=== PATIENT | male | born 1980 | race Caucasian/White ===

== ENCOUNTER 2018-02-02 11:43 | Inpatient (IN) | payer OTHER ==
[2018-02-02] MEDS ORDERED: NS 0.9% 1000 ML** 2,000 ML IV ONE (12:23)
[2018-02-02] MEDS ORDERED: Ketorolac INJ* 30 MG/ML 1 ML VIAL IV PUSH ONE (12:40)
[2018-02-02] MEDS ORDERED: Ondansetron INJ* 2 MG/ML VIAL IV ONE (12:41)
--- NOTE | 2018-02-02 12:41 | ED ---
Abdominal Pain/Male - HPI Summary HPI Summary: Pt is a 37 y/o incarcerated male brought in with two guards who presents to the ED c/o abdominal pain for months, worse the past few days. [facility]. Pt has had intermittent RUQ pain for the past 4 months. He has been taking Ibuprofen and antacid for his symptoms. Pt describes the pain as 10/10 in severity, sharp, and shooting. The pain is made worse with burping and coughing. He began to have this pain again yesterday in his RUQ, but it now radiates to his entire abdomen. Pt also c/o chills, diaphoresis, SOB , cough, N/V, and dizziness. He denies any urinary sx, hematochezia, GREGORIO, CP, or fever. He describes his vomit as clear, and denies any blood. Pts last BM was yesterday and was normal. The last thing he ate was yesterday, and he ate baked ziti. PMHx hernias and HTN. He denies any hx of gallbladder issues. Pt has a FHx of gallbladder issues. - History of Current Complaint Chief Complaint: EDAbdPain Stated Complaint: ABD PAIN Time Seen by Provider: 02/02/18 12:21 Hx Obtained From: Patient Onset/Duration: Gradual Onset, Still Present Timing: Intermittent, Lasting Weeks - 4 months Severity Initially: Moderate Severity Currently: Severe Pain Intensity: 10 Pain Scale Used: 0-10 Numeric Location: Discrete At: RUQ Radiates: Yes Radiates to: Other - Abdomen Character: Sharp - shooting Aggravating Factor(s): Other: - burping, coughing Alleviating Factor(s): Nothing Associated Signs And Symptoms: Positive: Cough, Dizzy, Nausea, Vomiting. Negative: Fever, Chest Pain, Urinary Symptoms - Allergies/Home Medications Allergies/Adverse Reactions: Allergies Allergy/AdvReac Type Severity Reaction Status Date / Time No Known Drug Allergies Allergy See Comment Verified 02/02/18 11:54 Home Medications: Home Medications Omeprazole CAP (NF) [Prilosec CAP* 20 MG] 20 mg PO DAILY 02/02/18 [History Confirmed 02/02/18] PMH/Surg Hx/FS Hx/Imm Hx Previously Healthy: No Endocrine/Hematology History: Denies: Hx Diabetes Cardiovascular History: Reports: Hx Hypertension GI History: Reports: Other GI Disorders - hernias Denies: Hx Gall Bladder Disease - Surgical History Surgery Procedure, Year, and Place: bilateral hernia surgery Infectious Disease History: No Infectious Disease History: Denies: Traveled Outside the [place] in Last 30 Days - Family History Known Family History: Positive: Other - Gallbladder disease - Social History Lives: [facility] - incarcerated at [facility] Alcohol Use: None Hx Substance Use: No Substance Use Type: Reports: None Hx Tobacco Use: Yes Smoking Status (MU): Former Smoker Review of Systems Positive: Chills, Skin Diaphoresis. Negative: Fever Negative: Chest Pain Positive: Shortness Of Breath, Cough Positive: Abdominal Pain, Vomiting, Nausea, Other - NEGATIVE: hematochezia, hemetemesis Genitourinary: Negative Musculoskeletal: Negative Skin: Negative Neurological: Other - Dizziness Negative: Headache Psychological: Normal All Other Systems Reviewed And Are Negative: Yes Physical Exam - Summary Physical Exam Summary: Appearance: Ill-appearing, moderate pain distress, well-nourished Skin: Warm, color reflects adequate perfusion, dry Head: Normal Head/Face inspection, atraumatic Eyes: Conjunctiva clear ENT: Normal inspection Neck: Supple, no nodes, no JVD Respiratory: Lungs clear, normal breath sounds, no respiratory distress Cardio: RRR, No murmur, pulses normal, brisk capillary refill Abdomen: Soft, RUQ tenderness, nondistended, no masses Bowel sounds: Present Musculoskeletal: Strength Intact/ROM intact, no calf tenderness, no edema. Psychological: Normal Neuro: Alert, muscle tone normal, no focal deficit Triage Information Reviewed: Yes Vital Signs On Initial Exam: Initial Vitals Temp Pulse Resp BP Pulse Ox 97.3 F 67 19 166/84 93 02/02/18 11:49 02/02/18 11:49 02/02/18 11:49 02/02/18 11:49 02/02/18 11:49 Vital Signs Reviewed: Yes Diagnostics - Vital Signs Vital Signs Temp Pulse Resp BP Pulse Ox 02/02/18 11:54 67 93 02/02/18 11:53 69 166/84 94 02/02/18 11:49 97.3 F 67 19 166/84 93 - Laboratory Result Diagrams: 02/09/18 07:27 02/09/18 07:27 Lab Statement: Any lab studies that have been ordered have been reviewed, and results considered in the medical decision making process. - Radiology CXR Radiology Interpretation Completed By: Radiologist Summary of Radiographic Findings: No evidence for acute intrathoracic disease. Negative for free air beneath the diaphragm. ED physician reviewed radiology report. - Ultrasound No standard instances Ultrasound Interpretation Completed By: Radiologist Summary of Ultrasound Findings: Gallbladder US: Hepatomegaly and hepatosteatosis. Cholelithiasis without compelling secondary findings to indicate acute cholecystitis. The common bile duct could not be visualized due to limited acoustic window. Negative for intrahepatic biliary dilatation. ED physician reviewed radiology report. - EKG 12:32 Cardiac Rate: NL - 62 bpm EKG Rhythm: Sinus Rhythm ST Segment: Non-Specific Ectopy: None EKG Comparison: Other - No prior to compare. Summary of EKG Findings: An EKG at 12:32 reveals nml AV/IV CT, nml QTc, and nml axis. Re-Evaluation - Re-Evaluation First Eval Re-Evaluation Time: 14:00 Change: Unchanged Comment: Informed pt of US results. Awaiting lipase results. Second Eval Re-Evaluation Time: 15:21 Change: Unchanged Comment: Informed pt of plan to admit. Abdominal Pain Fem Course/Dx - Course Course Of Treatment: Pt is a 37 y/o male incarcerated at [facility], brought in with two guards who presents to the ED c/o abdominal pain acutely worse in the past few days. Pt has had intermittent RUQ pain for the past 4 months. Pt describes the pain as 10/10 in severity, sharp, and shooting. The pain is made worse with burping and coughing. He began to have this pain again yesterday in his RUQ, but it now radiates to his entire abdomen. Pt also c/o chills, diaphoresis, SOB, cough, N/V, and dizziness. He denies any urinary sx, hematochezia, GREGORIO, CP, or fever. A physical exam revealed RUQ tenderness. A CXR was negative. A gallbladder US revealed Hepatomegaly and hepatosteatosis. Cholelithiasis without compelling secondary findings to indicate acute cholecystitis. The common bile duct could not be visualized due to limited acoustic window. Negative for intrahepatic biliary dilatation. An EKG was normal with a rate of 62 bpm. UA and bloodwork reviewed. Lab abnormalities include T Bili 6.7, AST 568, ALT 1290, alk phos 139, amylase 774, lipase 2701. Care was discussed with Dr. Stiles who suggests probable gallstone pancreatitis with possible common bile duct obstruction. In the course the pt was given Amlodipine, Hydrochlorothiazide, fluids, Toradol, and Zofran. Final dx are gallstones, pancreatitis, and jaundice. Dr. Stiles suggested a CT A/P to try to visualize common bile duct, and Dr. Hernandez accepts pt for admission. He is agreeable with this plan. - Diagnoses Differential Diagnosis/HQI/PQRI: Appendicitis, Gall Bladder Disease, Pancreatitis Provider Diagnoses: Gallstones, Pancreatitis, Jaundice, Hypertension, poor control - Provider Notifications Discussed Care Of Patient With: Ernie Stiles Time Discussed With Above Provider: 15:02 Instructed by Provider To: Other - Get a CT A/P and admit to the hospitalist. At 15:[address] Hernandez, who accepts pt for admission. Discharge - Sign-Out/Discharge Documenting (check all that apply): Patient Departure - Admit - Discharge Plan Condition: Improved Disposition: ADMITTED TO [facility] - Billing Disposition and Condition Condition: IMPROVED Disposition: Admitted to [facility] - Attestation Statements Document Initiated by Dixonibe: Yes Documenting Scribe: Meghana Monroy Provider For Whom Dixonibe is Documenting (Include Credential): Jerica Elizondo MD Scribe Attestation: Meghana Horton, scribed for Jerica Elizondo MD on 02/12/18 at 1329. Scribe Documentation Reviewed: Yes Provider Attestation: The documentation as recorded by the Meghana pearl accurately reflects the service I personally performed and the decisions made by , Jerica Elizondo MD Status of Scribe Document: Viewed
[2018-02-02] MEDS ORDERED: amLODIPine TAB* 5 MG PO ONE (12:42)
[2018-02-02] MEDS ORDERED: Hydrochlorothiazide TAB* 25 MG PO ONE (12:43)
[2018-02-02 13:51] LABS: Activated Partial Thrombo Time 29.2 seconds (26.0-36.3); INR 1.02 (0.77-1.02)
[2018-02-02 13:58] LABS: Albumin 4.2 g/dL (3.2-5.2); Calcium 9.3 mg/dL (8.6-10.3); Potassium 3.9 mmol/L (3.5-5.0); Total Bilirubin 6.7 mg/dL (0.2-1.0)
[2018-02-02 14:04] LABS: Albumin/Globulin Ratio 1.6 (1-3); BUN/Creatinine Ratio 12.6 (8-20); C Reactive Protein 30.9 mg/L (<8.01); EGFR African American 97.3 (>60); EGFR Non-African American 80.4 (>60); Globulin 2.7 g/dL (2-4); Total Protein 6.9 g/dL (6.4-8.9)
[2018-02-02 14:21] LABS: ABS Basophils 0 10^3/ul (0-0.2); ABS Eosinophils 0 10^3/ul (0-0.6); ABS Lymphocytes 0.6 10^3/ul (1.0-4.8); ABS Monocytes 0.5 10^3/ul (0-0.8); ABS Neutrophils 7.9 10^3/ul (1.5-7.7); ABS Nucleated RBC 0 10^3/ul; Eosinophil % 0 %; Hematocrit 47 % (42-52); Hemoglobin 16.2 g/dl (14.0-18.0); Lymphocyte % 6.3 %; Mean Corpuscular HGB Conc 35 g/dl (31-36); Mean Corpuscular Hemoglobin 31 pg (27-31); Mean Corpuscular Volume 90 fL (80-94); Mean Platelet Volume 9.4 fL (7.4-10.4); Nucleated Red Blood Cells % 0; Platelet Count 203 10^3/ul (150-450); Red Blood Count 5.24 10^6/ul (4.00-5.40); Red Cell Distribution Width 13 % (10.5-15); White Blood Count 8.9 10^3/ul (3.5-10.8)
[2018-02-02 14:28] LABS: Urine Appearance Cloudy; Urine Bacteria Absent (Absent); Urine Bilirubin 1+ (Negative); Urine Blood Negative (Negative); Urine Color Amber; Urine Glucose Negative (Negative); Urine Ketones 1+ (Negative); Urine Nitrite Negative (Negative); Urine Protein 1+(30 mg/dL) (Negative); Urine Red Blood Cell Trace(0-2/hpf) (Absent); Urine Specific Gravity 1.031 (1.010-1.030); Urine Squamous Epithelial Cell Present (Absent); Urine Urobilinogen Positive (Negative); Urine White Blood Cell 2+(11-20/hpf) (Absent)
[2018-02-02 14:38] LABS: BNP 13 pg/mL (<=100)
[2018-02-02] MEDS ORDERED: hydrALAZINE IV* 20 MG/ML VIAL IV SLOW PU PRN (15:57)
[2018-02-02] MEDS ORDERED: Iohexol 300* (CONTRAST) 10 ML SDV IV ONE (16:00)
[2018-02-02] MEDS: Morphine VIAL* 4 MG/ML VIAL (1 ml vial) IV PRN ×2 (16:35→20:47)
[2018-02-02] MEDS: NS 0.9% 1000 ML** 1,000 ML IV SCH (17:05)
--- NOTE | 2018-02-02 18:49 | HP ---
CC: Primary Care Provider* HISTORY AND PHYSICAL: DATE OF ADMISSION: 02/02/18 PRIMARY CARE PROVIDER: Provider at [facility]. CHIEF COMPLAINT: Right upper quadrant abdominal pain. HISTORY OF PRESENT ILLNESS: Mr. Lowery is a 37-year-old male, who presented to the emergency room with complaints of 4 months of off-and-on right upper quadrant abdominal pain. He states that it has been low level discomfort for the last several months. He states that he will develop more severe pain after eating a bowl of oatmeal and peanut butter at times. Approximately 2 days prior to this admission, he ate for dinner. Yesterday (02/01/18) a.m., he awakened with severe right upper quadrant abdominal pain. He states that it then radiated to the entire abdomen. He states that he was unable to sleep. He states that he feels short of breath, but when asked to describe it, he states it hurt to take a deep breath. The patient has also been vomiting. He admits to shaking chills. He admits to feeling dizzy. He noted that his urine was very dark today. He denies any eric colored stools. He has had no appetite over the last few days. PAST MEDICAL HISTORY: Hypertension. PAST SURGICAL HISTORY: Bilateral inguinal hernia repair. MEDICATIONS: 1. Omeprazole 20 mg p.o. daily. 2. Hydrochlorothiazide 25 mg p.o. daily. 3. Amlodipine 10 mg p.o. daily. ALLERGIES: No known drug allergies. FAMILY HISTORY: Mom is living, she is 59. He reports some neurologic issue, but he is not sure what it is. Dad is also living, he is 64. He has a history of diabetes. SOCIAL HISTORY: The patient admits to smoking 3 cigarettes per day. He does not drink any alcohol currently. No recreational drugs currently. 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 He is . He has 3 children. He is currently incarcerated at [facility]. REVIEW OF SYSTEMS: A complete 11-system review of systems was obtained. Pertinent positives and negatives are as per HPI and otherwise negative. PHYSICAL EXAMINATION GENERAL: The patient is a well-developed, young male, sitting up in the stretcher, in no acute distress. VITAL SIGNS: Blood pressure 138/75, pulse 60, respirations 19, temp 97.3, O2 sat 95% on room air. HEENT: Pupils are equal and round. Extraocular muscles are intact. Oropharynx is clear. Oral mucosa is moist. There is no submandibular, cervical , or supraclavicular adenopathy. Thyroid is not enlarged. No thyroid nodules noted. PULMONARY: Lungs are clear to auscultation bilaterally. CARDIAC: Normal S1, S2. Regular rate and rhythm. I do not appreciate any murmur. There is no lower extremity edema. ABDOMEN: Bowel sounds are present. Abdomen is soft. It is nondistended. He is diffusely tender, but more so in the epigastrium and right upper quadrant and this is to light palpation. MUSCULOSKELETAL: There is no cyanosis or clubbing of the digits. The patient' s lower extremities are in shackles. NEUROLOGIC: Cranial nerves II through XII are grossly intact. Sensation is intact to light touch throughout. Strength is 5/5 and symmetric both upper and lower extremities bilaterally. PSYCHIATRIC: The patient is alert. He is oriented x3. Affect appears appropriate. SKIN: Warm and dry. There are no rashes. DIAGNOSTIC STUDIES/LAB DATA: Laboratory: WBC 8.9, hemoglobin 16.2, hematocrit 47, platelets 203. INR 1.02. Sodium 136, potassium 3.9, chloride 102, CO2 22, BUN 13, creatinine 1.03, glucose 134, lactic acid 1.7, calcium 9.3 , magnesium 2.0, bilirubin 6.7, AST 568, ALT 1290, alk phos 139, ammonia 71, CPK 108, troponin 0, CRP 30.9, BNP 13, albumin 4.2, amylase 774, lipase 2701. Urinalysis reveals cloudy urine with specific gravity of 1.031, 1+ protein, 1+ ketones, 1+ bilirubin, positive urobilinogen, 2+ wbc, positive for squamous epithelial cells and hyaline casts. EKG reveals normal sinus rhythm without any acute ST-T wave abnormalities. Chest x- ray: No evidence for acute intrathoracic disease, negative for free air beneath the diaphragm. Gallbladder ultrasound reveals hepatomegaly and hepatosteatosis. Cholelithiasis felt compelling secondary findings to indicate acute cholecystitis. The common bile duct could not be visualized due to limited acoustic window. Negative for intrahepatic biliary dilation. ASSESSMENT AND PLAN: Mr. Lowery is a 37-year-old male, who has had 4 months of off- and-on right upper quadrant abdominal pain that progressed to being quite severe on the day prior to admission with associated chills and dizziness, who presents to the emergency room for evaluation of this. 1. Probable gallstone pancreatitis. The patient at this point has markedly elevated bilirubin of 6.7 and elevated LFTs. My suspicion is that the patient is either in the process of or has passed a gallstone. The patient did admit to chills. Because of this, I will go ahead and treat with Zosyn for possible cholangitis, so this is unlikely given the patient is afebrile and does not have a leukocytosis. Dr. Stiles has been contacted through the emergency room and will be seeing the patient in consultation. At this point per report, he is going to hold off on endoscopic retrograde cholangiopancreatography. Followup CBC, CMP, and lipase levels will be obtained tomorrow. The patient will likely need cholecystectomy this hospitalization due to this probably representing gallstone pancreatitis. The patient will be receiving normal saline at 125 mL per hour and will be n.p.o. except for ice chips. Morphine 4 mg IV q.4 hours has been ordered for pain control. 2. Hypertension. At this point, I am going to hold the patient's antihypertensives. P.r.n. hydralazine will be available for systolic blood pressures greater than 170. 3. DVT prophylaxis: According to the Adult Thrombosis Prophylaxis Risk Factor Assessment Guide, the patient has a total risk factor score of 1, making him low risk. Ambulation will be utilized as DVT prophylaxis. 4. Code status is full. TIME SPENT: 55 minutes was spent admitting this patient. [id number]/[facility] #: [id number] [facility]ITAL[facility]cob
[2018-02-02] MEDS ORDERED: Piperacillin/Tazobac ADVAN(*) 3.375 GM in NS 0.9% 100 ML* 100 ML IVPB ONE (21:09)
--- NOTE | 2018-02-02 21:17 | CONS ---
GASTROENTEROLOGY CONSULT: DATE: 02/02/18 CONSULTING PHYSICIAN: Rosmery Hernandez REASON FOR CONSULTATION: Abdominal pain with elevated lipase and ultrasound showing gallstones. HISTORY: This 37-year-old inmate at [facility] states that over the last year he has lost about 20 pounds voluntarily. He has not really been trying to lose weight. About a month ago, he began having episodes of right upper quadrant distress, which he said would tend to occur in the night, sometimes awakening him at 1 or 2 a.m. if he had been eating late. Several days ago, he went in to the [facility] and was told to take ibuprofen and antacids. The pain, however, built and then today it was, he said, unbearable. He had been up through the night. He had vomited a couple of times in the night and also a couple of times this morning. His last bowel movement was about 20 hours ago. He has not seen any black stools. There has not been on any fever. His mother apparently works in a primary care office and describing his symptoms told him to get an ultrasound. PAST MEDICAL HISTORY: 1. Hernia repairs right and left, ages 6 and 8. 2. Cholelithiasis - seen on the ultrasound today 3. Hypertension meds started in the [facility] SOCIAL HISTORY: He actually has a primary care doctor in whose office his mother works. He states he is not treated for any medical condition there, but just likes "to get checked out." REVIEW OF SYSTEMS: He denies any cardiac, pulmonary or renal disease. There is no history of seizures, syncope, palpitations, AR, hemoptysis, or TB. PHYSICAL EXAM: He is a composed, generally healthy appearing, moderately overweight young man, in no overt distress at this time, and is stating his abdomen is uncomfortable. HEENT exam shows no obvious icterus. He has a few tattoos and skin otherwise normal. He has no adenopathy. His lungs are clear and heart sounds are normal. His abdomen is symmetric without any visible abnormality. Bowel sounds are present. Extremities show no edema or deformity. LABS: Lipase 2701, alkaline phosphatase 139, bilirubin 6.7, ALT 1290. CBC shows hemoglobin 16.2, white count 8.9, platelets 203. Right upper quadrant ultrasound - hepatomegaly and gallstones. The common duct was not seen. IMPRESSION: This 37-year-old man mildly overweight who has lost a little bit of weight during a year in [facility] now has pain in the right upper quadrant intermittently, but increasingly over the last month. The lab abnormalities clearly point towards common duct obstruction and gallstone pancreatitis. He will have a CT scan and then quite possibly MRCP. [id number]/[facility] #: [id number] MTDJaycob
[2018-02-02] MEDS ORDERED: Zosyn per Pharmacy* NOTE FOLLOW UP SCH (22:00)
[2018-02-02] MEDS: ZOSYN 3.375 GM Q8H per EXTENDED INFUSION IVPB SCH ×2 (23:34)
[2018-02-03] MEDS: Morphine VIAL* 4 MG/ML VIAL (1 ml vial) IV PRN ×4 (01:34→18:31)
[2018-02-03] MEDS: ZOSYN 3.375 GM Q8H per EXTENDED INFUSION IVPB SCH ×6 (01:35→18:09)
[2018-02-03] MEDS: NS 0.9% 1000 ML** 1,000 ML IV SCH ×2 (01:40→18:09)
[2018-02-03 06:24] LABS: ABS Basophils 0 10^3/ul (0-0.2); ABS Eosinophils 0 10^3/ul (0-0.6); ABS Lymphocytes 1.2 10^3/ul (1.0-4.8); ABS Monocytes 0.7 10^3/ul (0-0.8); ABS Neutrophils 7.8 10^3/ul (1.5-7.7); ABS Nucleated RBC 0 10^3/ul; Eosinophil % 0 %; Hematocrit 43 % (42-52); Hemoglobin 14.9 g/dl (14.0-18.0); Lymphocyte % 12.2 %; Mean Corpuscular HGB Conc 35 g/dl (31-36); Mean Corpuscular Hemoglobin 31 pg (27-31); Mean Corpuscular Volume 89 fL (80-94); Mean Platelet Volume 8.8 fL (7.4-10.4); Nucleated Red Blood Cells % 0; Platelet Count 151 10^3/ul (150-450); Red Blood Count 4.82 10^6/ul (4.00-5.40); Red Cell Distribution Width 13 % (10.5-15); White Blood Count 9.7 10^3/ul (3.5-10.8)
[2018-02-03 06:41] LABS: Albumin 3.7 g/dL (3.2-5.2); Albumin/Globulin Ratio 1.5 (1-3); BUN/Creatinine Ratio 10.9 (8-20); Calcium 8.8 mg/dL (8.6-10.3); EGFR African American 99.5 (>60); EGFR Non-African American 82.2 (>60); Globulin 2.4 g/dL (2-4); Potassium 3.9 mmol/L (3.5-5.0); Total Protein 6.1 g/dL (6.4-8.9)
[2018-02-03] MEDS: Pantoprazole IV* 40 MG IV SCH (09:18)
--- NOTE | 2018-02-03 17:40 | PN ---
Subjective Date of Service: 02/03/18 Interval History: Pt reports minimal improvement in pain.Has been NPO so far and wants to eat.Denies Nausea,vomiting Objective Active Medications: Hydralazine HCl (Apresoline Iv*) 5 mg IV SLOW PU Q6H PRN PRN Reason: SBP>170 Sodium Chloride (Ns 0.9% 1000 Ml*) 1,000 mls @ 125 mls/hr IV PER RATE [facility] Last Admin: 02/03/18 01:40 Dose: 125 mls/hr Piperacillin Sod/Tazobactam (Sod 3.375 gm/ Sodium Chloride) 100 mls @ 25 mls/ hr IVPB 0230,1030,1830 [facility] Last Admin: 02/03/18 09:19 Dose: 25 mls/hr Morphine Sulfate (Morphine Vial*) 4 mg IV Q4H PRN PRN Reason: PAIN Last Admin: 02/03/18 09:35 Dose: 4 mg Pantoprazole Sodium (Protonix Iv*) 40 mg IV DAILY [facility] Last Admin: 02/03/18 09:18 Dose: 40 mg Pharmacy Consult (Zosyn Per Pharmacy*) 1 note FOLLOW UP .ZOSYN PER PHARMACY [facility] Vital Signs - 8 hr 02/03/18 02/03/18 09:35 11:07 Temperature 99.1 F Pulse Rate 100 Respiratory 20 20 Rate Blood Pressure 131/75 (mmHg) O2 Sat by Pulse 94 Oximetry Oxygen Devices in Use Now: None Eyes: No Scleral Icterus Ears/Nose/Mouth/Throat: NL Teeth, Lips, Gums Neck: NL Appearance and Movements; NL JVP Respiratory: Symmetrical Chest Expansion and Respiratory Effort, Clear to Auscultation Cardiovascular: NL Sounds; No Murmurs; No JVD Abdominal: - - BS present, some tenderness to palpation diffusely in upper quadrant,no rebound,no guarding Extremities: No Edema Skin: No Rash or Ulcers Neurological: Alert and Oriented x 3 Result Diagrams: 02/03/18 06:14 02/03/18 06:14 Microbiology and Other Data: Microbiology 02/02/18 13:48 Urine Culture - Final Urine No Growth (<1,000 CFU/mL) 02/02/18 17:16 Nasal Screen MRSA (PCR) - Final Nasal Mrsa Not Detected Assess/Plan/Problems-Billing Assessment: - Patient Problems (1) Acute gallstone pancreatitis Current Visit: Yes Status: Acute Code(s): K85.10 - BILIARY ACUTE PANCREATITIS WITHOUT NECROSIS OR INFECTION SNOMED Code(s): 271393160 Comment: Possible Gallstone pancreatitis with consistent lab pattern and imaging Possible CBD obstruction from likely stone/ less likely mass CT with evidence of Pancreatitis,GB ultrasound with choledocholithiasis without acute cholecystitis. CBD not well visualized on u/s and size not estimated Elevated Lipase,AP,AST,ALT -Appreciate Dr Stiles's input -MRCP per Dr Stiles( Will need to call Radiology first thing Sunday am).ERCP following if warranted -Tian,liver panel improving.May pass stone as well. -Has been NPO.Per d/w Dr Stiles will place on Clear Liq diet today -NPO from midnight -Continue empiric antibiotic Zosyn for cholangitis coverage for now (2) Choledocholithiasis Current Visit: Yes Status: Acute Code(s): K80.50 - CALCULUS OF BILE DUCT W/ O CHOLANGITIS OR CHOLECYST W/O OBST SNOMED Code(s): 708574668 Comment: See above May need Cholecystectomy at some point See plan for MRCP/Poss ERCP above for gall stone pancreatitis (3) Hypertension Current Visit: Yes Status: Acute Code(s): I10 - ESSENTIAL (PRIMARY) HYPERTENSION SNOMED Code(s): 14269053 Comment: On amlodipine,HCTZ at home Well controlled here Will restart BP meds when stable and as BP rises
[2018-02-04] MEDS: Morphine VIAL* 4 MG/ML VIAL (1 ml vial) IV PRN ×6 (02:28→23:09)
[2018-02-04] MEDS: NS 0.9% 1000 ML** 1,000 ML IV SCH ×3 (02:28→22:26)
[2018-02-04] MEDS: ZOSYN 3.375 GM Q8H per EXTENDED INFUSION IVPB SCH ×6 (02:28→18:25)
[2018-02-04 07:56] LABS: ABS Basophils 0 10^3/ul (0-0.2); ABS Eosinophils 0 10^3/ul (0-0.6); ABS Lymphocytes 1.7 10^3/ul (1.0-4.8); ABS Monocytes 0.9 10^3/ul (0-0.8); ABS Neutrophils 11.5 10^3/ul (1.5-7.7); ABS Nucleated RBC 0 10^3/ul; Eosinophil % 0.1 %; Hematocrit 44 % (42-52); Hemoglobin 15.2 g/dl (14.0-18.0); Mean Corpuscular HGB Conc 34 g/dl (31-36); Mean Corpuscular Hemoglobin 31 pg (27-31); Mean Corpuscular Volume 90 fL (80-94); Mean Platelet Volume 9.4 fL (7.4-10.4); Nucleated Red Blood Cells % 0; Platelet Count 154 10^3/ul (150-450); Red Blood Count 4.95 10^6/ul (4.00-5.40); Red Cell Distribution Width 13 % (10.5-15); White Blood Count 14.2 10^3/ul (3.5-10.8)
[2018-02-04 08:14] LABS: Albumin 3.7 g/dL (3.2-5.2); Albumin/Globulin Ratio 1.3 (1-3); BUN/Creatinine Ratio 10.8 (8-20); Calcium 8.6 mg/dL (8.6-10.3); EGFR African American 109.4 (>60); EGFR Non-African American 90.5 (>60); Globulin 2.9 g/dL (2-4); Potassium 3.8 mmol/L (3.5-5.0); Total Bilirubin 2.6 mg/dL (0.2-1.0); Total Protein 6.6 g/dL (6.4-8.9)
[2018-02-04] MEDS: Pantoprazole IV* 40 MG IV SCH (09:40)
--- NOTE | 2018-02-04 10:36 | PN ---
Subjective Date of Service: 02/04/18 Interval History: Febrile to 101 this morning. Feels about the same; pain not better or worse. Was NPO for the MRCP when I saw him this morning but had an appetite. Was having clear liquids the night prior and tolerated well. Objective Active Medications: Hydralazine HCl (Apresoline Iv*) 5 mg IV SLOW PU Q6H PRN PRN Reason: SBP>170 Sodium Chloride (Ns 0.9% 1000 Ml*) 1,000 mls @ 125 mls/hr IV PER RATE [facility] Last Admin: 02/04/18 02:28 Dose: 125 mls/hr Piperacillin Sod/Tazobactam (Sod 3.375 gm/ Sodium Chloride) 100 mls @ 25 mls/ hr IVPB 0230,1030,1830 [facility] Last Admin: 02/04/18 09:46 Dose: 25 mls/hr Morphine Sulfate (Morphine Vial*) 4 mg IV Q4H PRN PRN Reason: PAIN Last Admin: 02/04/18 06:35 Dose: 4 mg Pantoprazole Sodium (Protonix Iv*) 40 mg IV DAILY [facility] Last Admin: 02/04/18 09:40 Dose: 40 mg Pharmacy Consult (Zosyn Per Pharmacy*) 1 note FOLLOW UP .ZOSYN PER PHARMACY [facility] Vital Signs - 8 hr 02/04/18 02/04/18 02/04/18 02:37 03:35 06:35 Temperature 99.6 F Pulse Rate 98 Respiratory 16 16 18 Rate Blood Pressure 126/70 (mmHg) O2 Sat by Pulse 93 Oximetry 02/04/18 07:13 Temperature 101.0 F Pulse Rate 94 Respiratory 16 Rate Blood Pressure 116/64 (mmHg) O2 Sat by Pulse 92 Oximetry Oxygen Devices in Use Now: None Appearance: alert, nontoxic, breathing comfortably Eyes: No Scleral Icterus Ears/Nose/Mouth/Throat: NL Teeth, Lips, Gums Neck: NL Appearance and Movements; NL JVP Respiratory: Symmetrical Chest Expansion and Respiratory Effort Cardiovascular: NL Sounds; No Murmurs; No JVD Abdominal: - - tender to palpation through epigastric area Lymphatic: No Cervical Adenopathy Extremities: No Edema Skin: No Rash or Ulcers Neurological: Alert and Oriented x 3 Result Diagrams: 02/04/18 07:46 02/04/18 07:46 Microbiology and Other Data: Microbiology 02/02/18 13:48 Urine Culture - Final Urine No Growth (<1,000 CFU/mL) 02/02/18 17:16 Nasal Screen MRSA (PCR) - Final Nasal Mrsa Not Detected Assess/Plan/Problems-Billing Assessment: 37 year old man with no medical history admitted with abdominal pain and found to have gallstone pancreatitis - Patient Problems (1) Acute gallstone pancreatitis Current Visit: Yes Status: Acute Code(s): K85.10 - BILIARY ACUTE PANCREATITIS WITHOUT NECROSIS OR INFECTION SNOMED Code(s): 127705323 Comment: MRCP shows no CBD stone CT with evidence of Pancreatitis,GB ultrasound with choledocholithiasis without acute cholecystitis. CBD not well visualized on u/s and size not estimated will eventually need cholecystecomy; discussed wtih Dr Heredia on empiric zosyn (2) Hypertension Current Visit: Yes Status: Acute Code(s): I10 - ESSENTIAL (PRIMARY) HYPERTENSION SNOMED Code(s): 06986875 Comment: On amlodipine,HCTZ at home Well controlled here Will restart BP meds when stable and as BP rises (3) SIRS (systemic inflammatory response syndrome) Current Visit: Yes Status: Acute Code(s): R65.10 - SIRS OF NON-INFECTIOUS ORIGIN W/O ACUTE ORGAN DYSFUNCTION SNOMED Code(s): 138736584 Comment: concerning for necrotizing pancreatitis no other localizing symptoms and no cholangitis on mrcp continue pip/tazo
[2018-02-04] MEDS ORDERED: Acetaminophen SUPP* 650 MG SUPP PR PRN (11:45)
--- NOTE | 2018-02-04 22:12 | CONS ---
CONSULTATION REPORT: DATE OF CONSULT: 02/04/18 REFERRING PROVIDERS: 1. Dr. Halima Nichols, hospitalist. 2. Dr. Ernie Stiles, Gastroenterology. REASON FOR CONSULTATION: Gallstone pancreatitis. HISTORY OF PRESENT ILLNESS: Mr. Silver Lowery is a 37-year-old gentleman who was admitted to the hospitalist service over the weekend after he developed severe epigastric and upper abdominal discomfort. He gives a history of some intermittent right upper quadrant abdominal pain after eating larger meals especially late at night. He has never had this evaluated but he has described his symptoms as biliary tract related. On the night of his presentation, he developed a severe abdominal pain which was much worse and more diffuse. It did not radiate through to his back. It was difficult to take a deep breath. He also noted that his urine was very dark and he felt that he may have been jaundiced. He had some shaking chills and felt dizzy as well. When seen in the emergency room, he was noted to be afebrile with stable vital signs. Laboratory workup on admission included a normal white blood cell count. However, his total bilirubin was 6.7 with an elevated AST, ALT and alkaline phosphatase and a lipase of 2700. He underwent an ultrasound of his gallbladder which showed cholelithiasis and sludge with no gallbladder thickening or pericholecystic fluid. Common bile duct was not visualized. He also underwent a CT scan of the abdomen and pelvis, which showed peripancreatic fat stranding but no loculated fluid or abscess. The findings were consistent with acute pancreatitis. He has been admitted and treated supportively. Dr. tSiles had seen him from Gastroenterology. His liver transaminases and bilirubin have been improving; however, he did undergo MRCP today. It showed no evidence of ductal dilation with multiple gallstones in the neck of the gallbladder. There was no evidence of a common bile duct stone noted. PAST MEDICAL HISTORY: Hypertension. PAST SURGICAL HISTORY: Bilateral inguinal hernia repair. MEDICATIONS: 1. Omeprazole. 2. Hydrochlorothiazide. 3. Amlodipine. ALLERGIES: He has no known drug allergies. SOCIAL HISTORY: He is incarcerated at [place]. He lives in [place]. He is . He smokes about 3 cigarettes per day. He does not drink alcohol or use recreational drugs. REVIEW OF SYSTEMS: As per above. PHYSICAL EXAM: Temperature 100.2 earlier today, pulse 97, blood pressure 118/ 83. In general, he is a well-developed, well-nourished male, appears to be in no apparent distress. He is alert, conversant and oriented x3. Lungs were clear to auscultation with normal respiratory effort. Heart was regular rate and rhythm without murmurs, rubs or gallops. His abdomen is soft and nondistended. He has diminished bowel sounds throughout. There are no prior surgical incisions or hernias. He has some tenderness in the epigastrium and left and right upper quadrants. There is no rebound, guarding or peritoneal irritation, however. Psychiatric: He is awake, alert and oriented x3. He has normal judgment and insight. IMPRESSION: Gallstone pancreatis with initial hyperbilirubinemia which is slowly trending down. Total bilirubin today was 2.6 and his AST and ALT and alkaline phosphatase are also trending to normal. His lipase this morning was 122. MRCP today shows no evidence of common bile duct stone. I discussed the findings of his workup and clinical diagnosis of gallstone pancreatitis with him. I do recommend that he undergo a laparoscopic cholecystectomy most optimally during this admission as he slowly continues to improve. Concern obviously was the temperature of last night and this afternoon with an elevated white blood cell count today. He does not appear to have acute calculous cholecystitis and the fever and white blood cell count may be elevated secondary to pancreatic inflammation and this needs to be followed closely. He was started on clear liquids and clinically follow and see how he does from the diet standpoint. For now, we will follow him as he clinically improves. Recommendation would be a laparoscopic cholecystectomy on this admission as long as there are no complications from his acute pancreatitis. [id number]/[facility] #: [id number] VANESSA
[2018-02-05] MEDS: ZOSYN 3.375 GM Q8H per EXTENDED INFUSION IVPB SCH ×6 (03:04→17:22)
[2018-02-05] MEDS: Morphine VIAL* 4 MG/ML VIAL (1 ml vial) IV PRN ×5 (03:08→20:32)
[2018-02-05 06:50] LABS: ABS Basophils 0 10^3/ul (0-0.2); ABS Eosinophils 0 10^3/ul (0-0.6); ABS Lymphocytes 1.8 10^3/ul (1.0-4.8); ABS Neutrophils 7.6 10^3/ul (1.5-7.7); ABS Nucleated RBC 0 10^3/ul; Eosinophil % 0.4 %; Hematocrit 39 % (42-52); Hemoglobin 13.6 g/dl (14.0-18.0); Lymphocyte % 17.4 %; Mean Corpuscular HGB Conc 34 g/dl (31-36); Mean Corpuscular Hemoglobin 31 pg (27-31); Mean Corpuscular Volume 89 fL (80-94); Mean Platelet Volume 9.4 fL (7.4-10.4); Nucleated Red Blood Cells % 0; Platelet Count 147 10^3/ul (150-450); Red Blood Count 4.42 10^6/ul (4.00-5.40); Red Cell Distribution Width 13 % (10.5-15); White Blood Count 10.5 10^3/ul (3.5-10.8)
[2018-02-05 07:03] LABS: INR 1.1 (0.77-1.02)
[2018-02-05 07:09] LABS: Albumin 3.3 g/dL (3.2-5.2); Albumin/Globulin Ratio 1.2 (1-3); Globulin 2.8 g/dL (2-4); Indirect Bilirubin 1.2 mg/dL (0.3-1.0); Magnesium 2.1 mg/dL (1.9-2.7); Phosphorus 1.6 mg/dL (2.5-5.0); Total Bilirubin 1.7 mg/dL (0.2-1.0); Total Protein 6.1 g/dL (6.4-8.9)
[2018-02-05] MEDS: Pantoprazole IV* 40 MG IV SCH (09:46)
--- NOTE | 2018-02-05 11:04 | PN ---
Progress Note - Progress Note Date of Service: 02/05/18 SOAP: Subjective: He has diffuse abdominal pain that is better. He is thirsty. Notes nausea/no vomiting. Objective: Vital Signs Temp 97.6 F 02/05/18 08:06 Pulse 86 02/05/18 08:06 Resp 18 02/05/18 08:16 BP 140/74 02/05/18 08:06 Pulse Ox 96 02/05/18 08:06 Gen: NAD Abd: obese; soft; tender diffusely. Intake & Output 02/04/18 02/05/18 02/05/18 18:59 06:59 18:59 Intake Total 975 1675 710 Balance 975 1675 710 Intake: IV Fluids 495 1465 ABX - ZOSYN 100 NS (0.9%) 395 1465 IVPB 210 ABX - ZOSYN 210 Oral 480 0 710 Other: Estimated Void Medium # Voids 2 0 Laboratory Results - last 24 hr 02/05/18 02/05/18 02/05/18 06:29 06:29 06:29 WBC 10.5 RBC 4.42 Hgb 13.6 L Hct 39 L MCV 89 MCH 31 MCHC 34 RDW 13 Plt Count 147 L MPV 9.4 Neut % (Auto) 72.6 Lymph % (Auto) 17.4 [place] % (Auto) 9.5 Eos % (Auto) 0.4 Baso % (Auto) 0.1 Absolute Neuts (auto) 7.6 Absolute Lymphs (auto) 1.8 Absolute Monos (auto) 1.0 H Absolute Eos (auto) 0 Absolute Basos (auto) 0 Absolute Nucleated RBC 0 Nucleated RBC % 0 INR (Anticoag Therapy) 1.10 H Phosphorus 1.6 L Magnesium 2.1 Total Bilirubin 1.70 H Direct Bilirubin 0.50 H Indirect Bilirubin 1.2 H AST 29 ALT 247 H Alkaline Phosphatase 84 Total Protein 6.1 L Albumin 3.3 Globulin 2.8 Albumin/Globulin Ratio 1.2 Assessment: Gallstone pancreatitis, improving. Plan: Continue bowel rest. Follow labs. Lap sarah later this week (will check OR availability).
--- NOTE | 2018-02-05 11:58 | PN ---
Subjective Date of Service: 02/05/18 Interval History: Feeling okay, his is here visiting. Pain is controlled with morphine. Tolerating clear liquids and actually is hungry for more food. Was afebrile overnight. Objective Active Medications: Acetaminophen (Tylenol Supp*) 650 mg TN Q4H PRN PRN Reason: FEVER Last Admin: 02/04/18 20:16 Dose: 650 mg Acetaminophen (Tylenol Tab*) 650 mg PO Q4H PRN PRN Reason: FEVER Hydralazine HCl (Apresoline Iv*) 5 mg IV SLOW PU Q6H PRN PRN Reason: SBP>170 Sodium Chloride (Ns 0.9% 1000 Ml*) 1,000 mls @ 125 mls/hr IV PER RATE [facility] Last Admin: 02/04/18 22:26 Dose: 125 mls/hr Piperacillin Sod/Tazobactam (Sod 3.375 gm/ Sodium Chloride) 100 mls @ 25 mls/ hr IVPB 0230,1030,1830 [facility] Last Admin: 02/05/18 11:33 Dose: 25 mls/hr Morphine Sulfate (Morphine Vial*) 4 mg IV Q4H PRN PRN Reason: PAIN Last Admin: 02/05/18 11:27 Dose: 4 mg Pantoprazole Sodium (Protonix Iv*) 40 mg IV DAILY [facility] Last Admin: 02/05/18 09:46 Dose: 40 mg Pharmacy Consult (Zosyn Per Pharmacy*) 1 note FOLLOW UP .ZOSYN PER PHARMACY [facility] Vital Signs - 8 hr 02/05/18 02/05/18 02/05/18 04:44 07:16 08:06 Temperature 97.6 F Pulse Rate 86 Respiratory 16 16 16 Rate Blood Pressure 140/74 (mmHg) O2 Sat by Pulse 96 Oximetry 02/05/18 02/05/18 08:16 11:27 Temperature Pulse Rate Respiratory 18 18 Rate Blood Pressure (mmHg) O2 Sat by Pulse Oximetry Oxygen Devices in Use Now: None Appearance: alert, nontoxic, well appearing and breathing comfortably Eyes: No Scleral Icterus Ears/Nose/Mouth/Throat: NL Teeth, Lips, Gums Neck: NL Appearance and Movements; NL JVP Respiratory: Symmetrical Chest Expansion and Respiratory Effort, Clear to Auscultation Cardiovascular: NL Sounds; No Murmurs; No JVD, RRR Abdominal: - - negative saunders's, mild RUQ tenderness, more epigastric tenderness Lymphatic: No Cervical Adenopathy Extremities: No Edema Skin: No Rash or Ulcers Result Diagrams: 02/05/18 06:29 02/04/18 07:46 Microbiology and Other Data: Microbiology 02/02/18 13:48 Urine Culture - Final Urine No Growth (<1,000 CFU/mL) 02/02/18 17:16 Nasal Screen MRSA (PCR) - Final Nasal Mrsa Not Detected Assess/Plan/Problems-Billing Assessment: 37 year old man with htn admitted with abdominal pain and found to have gallstone pancreatitis - Patient Problems (1) Acute gallstone pancreatitis Current Visit: Yes Status: Acute Code(s): K85.10 - BILIARY ACUTE PANCREATITIS WITHOUT NECROSIS OR INFECTION SNOMED Code(s): 703563245 Comment: MRCP showed no CBD stone On empiric zosyn though no cholecystitis, no cholangitis ; however, he was febrile with leukocytosis (this is not surprising in pancreatitis but will continue for concern of necrosis) Pain control with morphine Continue clears Plan for cholecystectomy prior to discharge (2) Hypertension Current Visit: Yes Status: Acute Code(s): I10 - ESSENTIAL (PRIMARY) HYPERTENSION SNOMED Code(s): 54211192 Comment: On amlodipine,HCTZ at home; on hold for now (3) SIRS (systemic inflammatory response syndrome) Current Visit: Yes Status: Acute Code(s): R65.10 - SIRS OF NON-INFECTIOUS ORIGIN W/O ACUTE ORGAN DYSFUNCTION SNOMED Code(s): 287023730 Comment: concerning for necrotizing pancreatitis no other localizing symptoms and no cholangitis on mrcp continue pip/tazo
[2018-02-05] MEDS: Acetaminophen TAB* 325 MG PO PRN (12:05)
[2018-02-05] MEDS: NS 0.9% 1000 ML** 1,000 ML IV SCH (17:21)
[2018-02-05] MEDS ORDERED: Polyethylene Glycol 3350* 17 GM PACKET PO PRN (17:35)
[2018-02-05] MEDS ORDERED: Polyethylene Glycol 3350* 17 GM PACKET ONE (17:42)
[2018-02-06] MEDS: Morphine VIAL* 4 MG/ML VIAL (1 ml vial) IV PRN ×6 (00:42→22:31)
[2018-02-06] MEDS: ZOSYN 3.375 GM Q8H per EXTENDED INFUSION IVPB SCH ×6 (01:42→17:23)
[2018-02-06] MEDS: NS 0.9% 1000 ML** 1,000 ML IV SCH ×2 (01:43→17:32)
[2018-02-06 06:36] LABS: ABS Basophils 0 10^3/ul (0-0.2); ABS Eosinophils 0.1 10^3/ul (0-0.6); ABS Lymphocytes 1.9 10^3/ul (1.0-4.8); ABS Monocytes 1.1 10^3/ul (0-0.8); ABS Neutrophils 7.4 10^3/ul (1.5-7.7); ABS Nucleated RBC 0 10^3/ul; Eosinophil % 1.4 %; Hematocrit 39 % (42-52); Hemoglobin 13.4 g/dl (14.0-18.0); Lymphocyte % 17.7 %; Mean Corpuscular HGB Conc 34 g/dl (31-36); Mean Corpuscular Hemoglobin 31 pg (27-31); Mean Corpuscular Volume 90 fL (80-94); Mean Platelet Volume 9.1 fL (7.4-10.4); Nucleated Red Blood Cells % 0; Platelet Count 177 10^3/ul (150-450); Red Blood Count 4.39 10^6/ul (4.00-5.40); Red Cell Distribution Width 13 % (10.5-15); White Blood Count 10.5 10^3/ul (3.5-10.8)
[2018-02-06 06:52] LABS: INR 1.1 (0.77-1.02)
[2018-02-06 07:56] LABS: Albumin 3.4 g/dL (3.2-5.2); Calcium 8.7 mg/dL (8.6-10.3); Indirect Bilirubin 0.9 mg/dL (0.3-1.0); Potassium 3.6 mmol/L (3.5-5.0); Total Bilirubin 1.3 mg/dL (0.2-1.0)
[2018-02-06 08:02] LABS: BUN/Creatinine Ratio 8.7 (8-20); EGFR African American 154.5 (>60); EGFR Non-African American 127.6 (>60); Globulin 3.5 g/dL (2-4); Total Protein 6.9 g/dL (6.4-8.9)
[2018-02-06] MEDS: Pantoprazole IV* 40 MG IV SCH (09:19)
--- NOTE | 2018-02-06 17:23 | PN ---
Subjective Date of Service: 02/06/18 Interval History: Overall improved. Hungry. Had one dose IV MS today. Objective Active Medications: Acetaminophen (Tylenol Supp*) 650 mg WA Q4H PRN PRN Reason: FEVER Last Admin: 02/04/18 20:16 Dose: 650 mg Acetaminophen (Tylenol Tab*) 650 mg PO Q4H PRN PRN Reason: FEVER Last Admin: 02/05/18 12:05 Dose: 650 mg Hydralazine HCl (Apresoline Iv*) 5 mg IV SLOW PU Q6H PRN PRN Reason: SBP>170 Piperacillin Sod/Tazobactam (Sod 3.375 gm/ Sodium Chloride) 100 mls @ 25 mls/ hr IVPB 0230,1030,1830 [facility] Last Admin: 02/06/18 10:30 Dose: 25 mls/hr Sodium Chloride (Ns 0.9% 1000 Ml*) 1,000 mls @ 75 mls/hr IV PER RATE [facility] Pantoprazole Sodium (Protonix Iv*) 40 mg IV DAILY [facility] Last Admin: 02/06/18 09:19 Dose: 40 mg Pharmacy Consult (Zosyn Per Pharmacy*) 1 note FOLLOW UP .ZOSYN PER PHARMACY [facility] Polyethylene Glycol/Electrolytes (Miralax*) 17 gm PO DAILY PRN PRN Reason: CONSTIPATION Last Admin: 02/05/18 17:54 Dose: 17 gm Vital Signs - 8 hr 02/06/18 02/06/18 02/06/18 10:27 12:04 14:14 Temperature 98.2 F Pulse Rate 80 Respiratory 16 16 16 Rate Blood Pressure 143/77 (mmHg) O2 Sat by Pulse 97 Oximetry 02/06/18 02/06/18 14:45 15:00 Temperature 97.5 F Pulse Rate 84 Respiratory 16 16 Rate Blood Pressure 135/77 (mmHg) O2 Sat by Pulse 98 Oximetry Oxygen Devices in Use Now: None Appearance: Alert, supine in bed. In good spirits. Looks comfortable. Eyes: No Scleral Icterus Abdominal: No Hepatosplenomegaly, - - Soft, mod tender. Nl BS. Extremities: No Edema, No Clubbing, Cyanosis, - Skin: No Rash or Ulcers, No Nodules or Sclerosis, - Neurological: Alert and Oriented x 3, NL Sensation Result Diagrams: 02/06/18 06:26 02/06/18 06:26 Microbiology and Other Data: Microbiology 02/02/18 13:48 Urine Culture - Final Urine No Growth (<1,000 CFU/mL) 02/02/18 17:16 Nasal Screen MRSA (PCR) - Final Nasal Mrsa Not Detected Assess/Plan/Problems-Billing Assessment: 37 year old man with htn admitted with abdominal pain and found to have gallstone pancreatitis - Patient Problems (1) Acute gallstone pancreatitis Current Visit: Yes Status: Acute Code(s): K85.10 - BILIARY ACUTE PANCREATITIS WITHOUT NECROSIS OR INFECTION SNOMED Code(s): 662069910 Comment: MRCP showed no CBD stone On empiric zosyn though no cholecystitis, no cholangitis; however, he was febrile with leukocytosis (this is not surprising in pancreatitis but will continue for concern of necrosis) Reduce MS dose 02/06/18. Continue clears until less tender. Plan for cholecystectomy prior to discharge. (2) Hypertension Current Visit: Yes Status: Acute Code(s): I10 - ESSENTIAL (PRIMARY) HYPERTENSION SNOMED Code(s): 62008614 Comment: On amlodipine,HCTZ at home; on hold for now
[2018-02-07] MEDS: ZOSYN 3.375 GM Q8H per EXTENDED INFUSION IVPB SCH ×6 (02:28→17:58)
[2018-02-07] MEDS: Morphine VIAL* 4 MG/ML VIAL (1 ml vial) IV PRN ×4 (02:29→22:06)
[2018-02-07] MEDS: Pantoprazole IV* 40 MG IV SCH (10:16)
[2018-02-07] MEDS: Acetaminophen TAB* 325 MG PO PRN ×3 (10:22→23:41)
[2018-02-07] MEDS ORDERED: Buffered Lidocaine 0.9% SYRIN* 5 ML/SYR SYRINGE INTRADERM ONE (13:38)
--- NOTE | 2018-02-07 15:11 | PN ---
Progress Note - Progress Note Date of Service: 02/07/18 SOAP: Subjective:less abd pain,not requiring Morphine,no n/v,karolina clears [] Objective:abd:+bs,soft and nondistended;mild tenderness epigastric and RUQ,neg Santiago's sign Vital Signs Temp 100.2 F 02/07/18 11:22 Pulse 81 02/07/18 11:22 Resp 16 02/07/18 11:22 BP 117/70 02/07/18 11:22 Pulse Ox 97 02/07/18 11:22 Intake & Output 02/06/18 02/07/18 02/07/18 18:59 06:59 18:59 Intake Total 1530 1388 670 Output Total 480 Balance 1050 1388 670 Intake: IV Fluids 100 361 ABX - ZOSYN 100 NS (0.9%) 361 IVPB 67 ABX - ZOSYN 67 Oral 1430 960 670 Output: Urine 480 Other: Estimated Void Medium # Bowel Movements 1 Estimated Stool Amount Medium # Voids 2 1 Laboratory Last Values WBC 10.5 10^3/ul (3.5-10.8) 02/06/18 06:26 RBC 4.39 10^6/ul (4.00-5.40) 02/06/18 06:26 Hgb 13.4 g/dl (14.0-18.0) L 02/06/18 06:26 Hct 39 % (42-52) L 02/06/18 06:26 MCV 90 fL (80-94) 02/06/18 06:26 MCH 31 pg (27-31) 02/06/18 06:26 MCHC 34 g/dl (31-36) 02/06/18 06:26 RDW 13 % (10.5-15) 02/06/18 06:26 Plt Count 177 10^3/ul (150-450) 02/06/18 06:26 MPV 9.1 fL (7.4-10.4) 02/06/18 06:26 Neut % (Auto) 70.5 % 02/06/18 06:26 Lymph % (Auto) 17.7 % 02/06/18 06:26 [place] % (Auto) 10.1 % 02/06/18 06:26 Eos % (Auto) 1.4 % 02/06/18 06:26 Baso % (Auto) 0.3 % 02/06/18 06:26 Absolute Neuts (auto) 7.4 10^3/ul (1.5-7.7) 02/06/18 06:26 Absolute Lymphs (auto) 1.9 10^3/ul (1.0-4.8) 02/06/18 06:26 Absolute Monos (auto) 1.1 10^3/ul (0-0.8) H 02/06/18 06:26 Absolute Eos (auto) 0.1 10^3/ul (0-0.6) 02/06/18 06:26 Absolute Basos (auto) 0 10^3/ul (0-0.2) 02/06/18 06:26 Absolute Nucleated RBC 0 10^3/ul 02/06/18 06:26 Nucleated RBC % 0 02/06/18 06:26 INR (Anticoag Therapy) 1.10 (0.77-1.02) H 02/06/18 06:26 APTT 29.2 seconds (26.0-36.3) 02/02/18 13:34 Sodium 138 mmol/L (135-145) 02/06/18 06:26 Potassium 3.6 mmol/L (3.5-5.0) 02/06/18 06:26 Chloride 102 mmol/L (101-111) 02/06/18 06:26 Carbon Dioxide 25 mmol/L (22-32) 02/06/18 06:26 Anion Gap 11 mmol/L (2-11) 02/06/18 06:26 BUN 6 mg/dL (6-24) 02/06/18 06:26 Creatinine 0.69 mg/dL (0.67-1.17) 02/06/18 06:26 Est GFR ( Amer) 154.5 (>60) 02/06/18 06:26 Est GFR (Non-Af Amer) 127.6 (>60) 02/06/18 06:26 BUN/Creatinine Ratio 8.7 (8-20) 02/06/18 06:26 Glucose 114 mg/dL (70-100) H 02/06/18 06:26 Lactic Acid 1.7 mmol/L (0.5-2.0) 02/02/18 13:48 Calcium 8.7 mg/dL (8.6-10.3) 02/06/18 06:26 Phosphorus 1.6 mg/dL (2.5-5.0) L 02/05/18 06:29 Magnesium 2.1 mg/dL (1.9-2.7) 02/05/18 06:29 Total Bilirubin 1.30 mg/dL (0.2-1.0) H 02/06/18 06:26 Direct Bilirubin 0.40 mg/dL (0.03-0.18) H 02/06/18 06:26 Indirect Bilirubin 0.9 mg/dL (0.3-1.0) 02/06/18 06:26 AST 26 U/L (13-39) 02/06/18 06:26 ALT 179 U/L (7-52) H 02/06/18 06:26 Alkaline Phosphatase 106 U/L (34-104) H 02/06/18 06:26 Ammonia 71 mcmol/L (16-53) H 02/02/18 13:48 Total Creatine Kinase 108 U/L (10-223) 02/02/18 13:34 Troponin I 0.00 ng/mL (<0.04) 02/02/18 13:34 C-Reactive Protein 30.90 mg/L (<8.01) H 02/02/18 13:34 B-Natriuretic Peptide 13 pg/mL (<=100) 02/02/18 13:48 Total Protein 6.9 g/dL (6.4-8.9) 02/06/18 06:26 Albumin 3.4 g/dL (3.2-5.2) 02/06/18 06:26 Globulin 3.5 g/dL (2-4) 02/06/18 06:26 Albumin/Globulin Ratio 1.0 (1-3) 02/06/18 06:26 Amylase 774 U/L (29-103) H 02/02/18 13:34 Lipase 122 U/L (11.0-82.0) H 02/04/18 07:46 Urine Color Ariela 02/02/18 13:48 Urine Appearance Cloudy 02/02/18 13:48 Urine pH 5.0 (5-9) 02/02/18 13:48 Ur Specific [place] 1.031 (1.010-1.030) H 02/02/18 13:48 Urine Protein 1+(30 mg/dl) (Negative) A 02/02/18 13:48 Urine Ketones 1+ (Negative) A 02/02/18 13:48 Urine Blood Negative (Negative) 02/02/18 13:48 Urine Nitrate Negative (Negative) 02/02/18 13:48 Urine Bilirubin 1+ (Negative) A 02/02/18 13:48 Urine Urobilinogen Positive (Negative) A 02/02/18 13:48 Ur Leukocyte Esterase Negative (Negative) 02/02/18 13:48 Urine WBC (Auto) 2+(11-20/hpf) (Absent) A 02/02/18 13:48 Urine RBC (Auto) Trace(0-2/hpf) (Absent) 02/02/18 13:48 Ur Squamous Epith Cells Present (Absent) A 02/02/18 13:48 Urine Bacteria Absent (Absent) 02/02/18 13:48 Hyaline Casts Present (Absent) A 02/02/18 13:48 Urine Glucose Negative (Negative) 02/02/18 13:48 [] Assessment:gallstone pancreatitis,resolved [] Plan:OR 02/08/18 for laparoscopic cholecystectomy;NPO after midnight;continue abx []
--- NOTE | 2018-02-07 16:29 | PN ---
Subjective Date of Service: 02/07/18 Interval History: Pain improved, not using MS any more. Two BM's today. Objective Active Medications: Acetaminophen (Tylenol Supp*) 650 mg OR Q4H PRN PRN Reason: FEVER Last Admin: 02/04/18 20:16 Dose: 650 mg Acetaminophen (Tylenol Tab*) 650 mg PO Q4H PRN PRN Reason: FEVER Last Admin: 02/07/18 10:22 Dose: 650 mg Hydralazine HCl (Apresoline Iv*) 5 mg IV SLOW PU Q6H PRN PRN Reason: SBP>170 Piperacillin Sod/Tazobactam (Sod 3.375 gm/ Sodium Chloride) 100 mls @ 25 mls/ hr IVPB 0230,1030,1830 [facility] Last Admin: 02/07/18 10:16 Dose: 25 mls/hr Sodium Chloride (Ns 0.9% 1000 Ml*) 1,000 mls @ 75 mls/hr IV PER RATE [facility] Last Admin: 02/06/18 17:32 Dose: 75 mls/hr Lactated Ringer's (Lactated Ringers 1000 Ml Bag*) 1,000 mls @ 125 mls/hr IV PER RATE [facility] Morphine Sulfate (Morphine Vial*) 3 mg IV Q4H PRN PRN Reason: PAIN Last Admin: 02/07/18 06:30 Dose: 3 mg Pantoprazole Sodium (Protonix Iv*) 40 mg IV DAILY [facility] Last Admin: 02/07/18 10:16 Dose: 40 mg Pharmacy Consult (Zosyn Per Pharmacy*) 1 note FOLLOW UP .ZOSYN PER PHARMACY [facility] Polyethylene Glycol/Electrolytes (Miralax*) 17 gm PO DAILY PRN PRN Reason: CONSTIPATION Last Admin: 02/05/18 17:54 Dose: 17 gm Vital Signs - 8 hr 02/07/18 11:22 Temperature 100.2 F Pulse Rate 81 Respiratory 16 Rate Blood Pressure 117/70 (mmHg) O2 Sat by Pulse 97 Oximetry Oxygen Devices in Use Now: None Appearance: Alert, partly up in bed. In good spirits. Looks comfortable. Eyes: No Scleral Icterus Abdominal: No Hepatosplenomegaly, - - soft, mild-mod tenderness, nl BS Skin: No Rash or Ulcers, No Nodules or Sclerosis, - Neurological: Alert and Oriented x 3, NL Sensation Result Diagrams: 02/06/18 06:26 02/06/18 06:26 Microbiology and Other Data: Microbiology 02/02/18 13:48 Urine Culture - Final Urine No Growth (<1,000 CFU/mL) 02/02/18 17:16 Nasal Screen MRSA (PCR) - Final Nasal Mrsa Not Detected Assess/Plan/Problems-Billing Assessment: 37 year old man with htn admitted with abdominal pain and found to have gallstone pancreatitis - Patient Problems (1) Acute gallstone pancreatitis Current Visit: Yes Status: Acute Code(s): K85.10 - BILIARY ACUTE PANCREATITIS WITHOUT NECROSIS OR INFECTION SNOMED Code(s): 244412172 Comment: MRCP showed no CBD stone On empiric zosyn though no cholecystitis, no cholangitis; however, he was febrile with leukocytosis (this is not surprising in pancreatitis but will continue for concern of necrosis). Although less tender 1/3, T 100.2, continue Ab. Continue clears. Plan for cholecystectomy prior to discharge. (2) Hypertension Current Visit: Yes Status: Acute Code(s): I10 - ESSENTIAL (PRIMARY) HYPERTENSION SNOMED Code(s): 89308229 Comment: On amlodipine,HCTZ at home; on hold for now
[2018-02-07] MEDS: NS 0.9% 1000 ML** 1,000 ML IV SCH (17:04)
[2018-02-08] MEDS: Morphine VIAL* 4 MG/ML VIAL (1 ml vial) IV PRN ×3 (02:09→10:42)
[2018-02-08] MEDS: ZOSYN 3.375 GM Q8H per EXTENDED INFUSION IVPB SCH ×4 (02:09→10:30)
[2018-02-08] MEDS ORDERED: Lactated Ringers 1000 ML Bag* 1,000 ML IV SCH ×2 (06:00→11:00)
[2018-02-08] MEDS: NS 0.9% 1000 ML** 1,000 ML IV SCH (06:18)
[2018-02-08] MEDS: Pantoprazole IV* 40 MG IV SCH (08:57)
[2018-02-08] MEDS ORDERED: Dexamethasone IV* 4 MG/ML 1 ML (4 MG) IV SLOW PU ONE (10:18)
[2018-02-08] MEDS ORDERED: Buffered Lidocaine 0.9% SYRIN* 5 ML/SYR SYRINGE INTRADERM ONE (10:18)
[2018-02-08] MEDS ORDERED: Ondansetron INJ* 2 MG/ML VIAL IV ONE (10:18)
[2018-02-08] MEDS ORDERED: Famotidine IV* 10 MG/ML 2 ML (20 mg) IV ONE (10:18)
[2018-02-08] MEDS ORDERED: fentaNYL* 50 MCG/ML 2 ML VIAL (100 MCG VIAL) IV PRN (10:20)
[2018-02-08] MEDS ORDERED: oxyCODONE/Acetamin 5/325 MG* TAB PO PRN (10:20)
[2018-02-08] MEDS ORDERED: DiMENhydriNATE IV* 50 MG/ML VIAL IV PUSH PRN (10:20)
[2018-02-08] MEDS ORDERED: Morphine VIAL* 4 MG/ML VIAL (1 ml vial) IV PRN (10:20)
[2018-02-08] MEDS ORDERED: Naloxone* 0.4 MG/ML 1 ML VIAL IV PRN (10:20)
[2018-02-08] MEDS ORDERED: PROCHLORPERAZINE INJ 5 MG/ML 2 ML VIAL IV PRN (10:20)
--- NOTE | 2018-02-08 10:42 | PN ---
Subjective Date of Service: 02/08/18 Interval History: Pain better today. No sweats, chills, cough, sore throat, bowel c/o. No new c/ o. Objective Active Medications: Acetaminophen (Tylenol Supp*) 650 mg CO Q4H PRN PRN Reason: FEVER Last Admin: 02/04/18 20:16 Dose: 650 mg Acetaminophen (Tylenol Tab*) 650 mg PO Q4H PRN PRN Reason: FEVER Last Admin: 02/07/18 23:41 Dose: 650 mg Dexamethasone Sodium Phosphate (Decadron Iv*) 8 mg IV SLOW PU ONCE ONE Stop: 02/08/18 10:19 Dimenhydrinate (Dramamine Iv*) 25 mg IV PUSH ONCE PRN PRN Reason: NAUSEA/VOMITING Famotidine (Pepcid Iv*) 20 mg IV ONCE ONE Stop: 02/08/18 10:19 Fentanyl Citrate (Fentanyl*) 25 mcg IV Q3M PRN PRN Reason: PAIN - MODERATE Hydralazine HCl (Apresoline Iv*) 5 mg IV SLOW PU Q6H PRN PRN Reason: SBP>170 Piperacillin Sod/Tazobactam (Sod 3.375 gm/ Sodium Chloride) 100 mls @ 25 mls/ hr IVPB 0230,1030,1830 [facility] Last Admin: 02/08/18 10:30 Dose: 25 mls/hr Sodium Chloride (Ns 0.9% 1000 Ml*) 1,000 mls @ 75 mls/hr IV PER RATE [facility] Last Admin: 02/08/18 06:18 Dose: 75 mls/hr Lactated Ringer's (Lactated Ringers 1000 Ml Bag*) 1,000 mls @ 125 mls/hr IV PER RATE [facility] Last Admin: 02/08/18 06:06 Dose: 125 mls/hr Lactated Ringer's (Lactated Ringers 1000 Ml Bag*) 1,000 mls @ 125 mls/hr IV PER RATE [facility] Lidocaine/Sodium Bicarbonate (Buffered Lidocaine 0.9% Syrin*) 0.2 ml INTRADERM ONCE ONE Stop: 02/08/18 10:19 Morphine Sulfate (Morphine Vial*) 3 mg IV Q4H PRN PRN Reason: PAIN Last Admin: 02/08/18 06:06 Dose: 3 mg Morphine Sulfate (Morphine Vial*) 3 mg IV Q5M PRN PRN Reason: PAIN Naloxone HCl (Narcan*) 0.08 mg IV Q2M PRN PRN Reason: severe induced resp depression Ondansetron HCl (Zofran Inj*) 4 mg IV ONCE ONE Stop: 02/08/18 10:19 Oxycodone/Acetaminophen (Percocet 5/325 Tab*) 1 tab PO ONCE PRN PRN Reason: PAIN - MODERATE Pantoprazole Sodium (Protonix Iv*) 40 mg IV DAILY [facility] Last Admin: 02/08/18 08:57 Dose: 40 mg Pharmacy Consult (Zosyn Per Pharmacy*) 1 note FOLLOW UP .ZOSYN PER PHARMACY [facility] Polyethylene Glycol/Electrolytes (Miralax*) 17 gm PO DAILY PRN PRN Reason: CONSTIPATION Last Admin: 02/05/18 17:54 Dose: 17 gm Prochlorperazine Edisylate (Compazine Inj*) 5 mg IV ONCE PRN PRN Reason: NAUSEA/VOMITING Vital Signs - 8 hr 02/08/18 02/08/18 02/08/18 03:00 03:10 06:06 Temperature 99.1 F Pulse Rate 74 Respiratory 18 16 16 Rate Blood Pressure 126/64 (mmHg) O2 Sat by Pulse 97 Oximetry 02/08/18 02/08/18 02/08/18 07:32 08:00 09:00 Temperature 101.4 F Pulse Rate 91 Respiratory 14 18 18 Rate Blood Pressure 123/63 (mmHg) O2 Sat by Pulse 97 Oximetry Oxygen Devices in Use Now: None Appearance: Alert, partly up in bed. In good spirits. Looks well, comfortable. Eyes: No Scleral Icterus Neck: NL Appearance and Movements; NL JVP, No Thyroid Enlargement, Masses Respiratory: Symmetrical Chest Expansion and Respiratory Effort, Clear to Auscultation, Clear to Percussion Cardiovascular: NL Sounds; No Murmurs; No JVD, RRR, No Edema, - Abdominal: No Hepatosplenomegaly, - - minimal tenderness, nl BS Extremities: No Edema, No Clubbing, Cyanosis, - Skin: No Rash or Ulcers, No Nodules or Sclerosis, - Neurological: Alert and Oriented x 3, NL Sensation Result Diagrams: 02/06/18 06:26 02/06/18 06:26 Microbiology and Other Data: Microbiology 02/02/18 13:48 Urine Culture - Final Urine No Growth (<1,000 CFU/mL) 02/02/18 17:16 Nasal Screen MRSA (PCR) - Final Nasal Mrsa Not Detected Assess/Plan/Problems-Billing Assessment: 37 year old man with htn admitted with abdominal pain and found to have gallstone pancreatitis - Patient Problems (1) Acute gallstone pancreatitis Current Visit: Yes Status: Acute Code(s): K85.10 - BILIARY ACUTE PANCREATITIS WITHOUT NECROSIS OR INFECTION SNOMED Code(s): 744604073 Comment: MRCP showed no CBD stone On empiric zosyn though no cholecystitis, no cholangitis; however, he was febrile with leukocytosis (this is not surprising in pancreatitis but will continue for concern of necrosis). Continues to improve, less tender 02/08, T 101.4, supect drug fever, stop Ab. Continue clears. Plan for cholecystectomy 02/08/18. (2) Hypertension Current Visit: Yes Status: Acute Code(s): I10 - ESSENTIAL (PRIMARY) HYPERTENSION SNOMED Code(s): 18396761 Comment: On amlodipine,HCTZ at home; on hold for now
--- NOTE | 2018-02-08 10:49 | PN ---
Progress Note - Progress Note Date of Service: 02/08/18 Note: Patient reports pain is minimal and he is anxious to proceed with surgery. Aegl=840.4 VSS Gen: NAD Abd: obese, ND, soft and NT. A/P: GS pancreatitis. Pt now improved and ready to proceed with surgery. D/w Dr. Salas and fever felt to be drug related. Plan is for lap sarah this afternoon. Procedure, indications, risks, benefits, alternatives and option of no treatment discussed. Risks explained including, not limited to: bleeding, infection, pain,scars, blood clots, pneumonia, visceral injury, need for open surgery, nausea/vomiting, need for other procedures and risk of GETA. All questions were answered. He stated understanding and agrees to proceed.
[2018-02-08] MEDS ORDERED: Midazolam* 1 MG/ML 5 ML VIAL (5 MG) ONE (12:37)
[2018-02-08] MEDS ORDERED: fentaNYL* 50 MCG/ML 5 ML VIAL (250 MCG VIAL) ONE (12:37)
[2018-02-08] MEDS ORDERED: KETAMINE HCL* 50 MG/ML 10 ML VIAL ONE (12:37)
[2018-02-08] MEDS ORDERED: Atracurium* 10 MG/ML 10 ML VIAL ONE (12:37)
[2018-02-08] MEDS ORDERED: Bupivacaine 0.5%* 50 ML VIAL ONE (13:09)
[2018-02-08] MEDS ORDERED: Lidocaine 2% PF * 5 ML VIAL ONE (13:13)
[2018-02-08] MEDS ORDERED: Glycopyrrolate IV* 0.2 MG/ML 1 ML VIAL ONE (13:14)
[2018-02-08] MEDS ORDERED: Bupivacaine 0.25% EPI 200,000* 30 ML SDV ONE (13:14)
[2018-02-08] MEDS ORDERED: Neostigmine Methylsulfate* 1 MG/ML 10 ML VIAL (1 mg/ml) ONE (13:14)
[2018-02-08] MEDS ORDERED: Ketorolac INJ* 30 MG/ML 1 ML VIAL ONE (13:14)
[2018-02-08] MEDS ORDERED: Dexamethasone IV* 4 MG/ML 1 ML (4 MG) ONE (13:14)
[2018-02-08] MEDS ORDERED: Propofol* 10 MG/ML 20 ML BTL ONE ×2 (13:14→13:44)
[2018-02-08] MEDS ORDERED: Famotidine IV* 10 MG/ML 2 ML (20 mg) ONE (13:14)
[2018-02-08] MEDS ORDERED: Ondansetron INJ* 2 MG/ML VIAL ONE (13:14)
[2018-02-08] MEDS ORDERED: hydrALAZINE IV* 20 MG/ML VIAL ONE (13:44)
[2018-02-08] MEDS ORDERED: Metoprolol Tartrate IV* 1 MG/ML 5 ML VIAL ONE (13:44)
[2018-02-08] MEDS ORDERED: Ibuprofen TAB* 600 MG PO PRN (15:29)
[2018-02-08] MEDS ORDERED: Ondansetron INJ* 2 MG/ML VIAL IV PRN (15:30)
[2018-02-08] MEDS: Lactated Ringers 1000 ML Bag* 1,000 ML IV SCH (15:37)
[2018-02-08] MEDS: Acetaminophen TAB* 325 MG PO PRN (17:53)
--- NOTE | 2018-02-08 23:06 | OP ---
CC: [facility] in [place], [place]; Jimmy Casey MD * DATE OF OPERATION: 02/08/18 - ROOM #422 DATE OF : 76 SURGEON: Jose Guadalupe Damon MD WIRE STEWARD: Anaya Fischer NP ANESTHESIOLOGIST: Xavier Wayne MD ANESTHESIA: General endotracheal. PRE-OP DIAGNOSIS: Gallstone pancreatitis. POST-OP DIAGNOSIS: Gallstone pancreatitis. OPERATIVE PROCEDURE: Laparoscopic cholecystectomy. ESTIMATED BLOOD LOSS: Less than 10 mL. IV FLUIDS: Crystalloid. SPECIMENS: Gallbladder. DRAINS: None. COMPLICATIONS: None. COUNTS: The instrument, needle, and sponge counts were correct. DESCRIPTION OF PROCEDURE: The patient was brought to the operating room and placed on the table supine. Sequential compression devices were placed in both lower extremities. General anesthesia was administered. He was positioned and padded appropriately and then time-out was performed. Local anesthetic was infiltrated into the skin and soft tissue prior to making each incision. Entry to the abdomen was through a transumbilical incision using an open technique, and after accessing the peritoneal cavity, a 5-mm trocar was placed and then carbon dioxide was insufflated to a pressure of 15 mmHg. Under direct visualization, 5-mm trocars were placed in the subxiphoid position and 2 in the right upper quadrant. The initial trocar was exchanged to a 12-mm bladeless trocar. Inspection of the abdominal cavity revealed that there was some straw-colored ascites fluid present. There was evidence of saponified fat within the abdominal cavity as well. The gallbladder did not appear to be acutely inflamed , but there were gallstones visible within it. The gallbladder fundus was grasped, retracted cephalad, and the infundibulum was identified. The peritoneum investing the gallbladder was incised with cautery and sharp and blunt dissection and dissected free. The gallbladder was grasped and the dissection proceeded along the medial and lateral aspects of the gallbladder freeing his peritoneum and dissecting out the cystic artery and cystic duct until critical views were obtained. The cystic artery and then cystic ducts were doubly clipped and divided. The gallbladder was grasped. The cystic duct stump was retracted cephalad as the gallbladder was freed from attachments to the liver using the hook cautery and staying in an avascular plane. Once the gallbladder was freed, it was placed in endoscopic retrieval bag and retrieved through the umbilical site. Inspection of the area of dissection revealed mucosa to be intact and hemostasis was assured. The ports were removed under direct visualization and carbon dioxide was released. The umbilical incision was closed with 0 Vicryl to approximate the fascia in a [id number] fashion and then a skin incision was closed with 4-0 Monocryl in subcuticular fashion. Steri-Strips were applied to the sites. The patient tolerated the procedure well, was extubated, and transferred to the recovery room in stable condition. [id number]/[facility] #: [id number] VANESSA
[2018-02-09] MEDS: Lactated Ringers 1000 ML Bag* 1,000 ML IV SCH (02:44)
[2018-02-09] MEDS: oxyCODONE/Acetamin 5/325 MG* TAB PO PRN ×2 (02:50→08:29)
[2018-02-09 07:35] LABS: Hematocrit 37 % (42-52); Hemoglobin 12.8 g/dl (14.0-18.0); Mean Corpuscular HGB Conc 35 g/dl (31-36); Mean Corpuscular Hemoglobin 31 pg (27-31); Mean Corpuscular Volume 90 fL (80-94); Mean Platelet Volume 8.8 fL (7.4-10.4); Platelet Count 276 10^3/ul (150-450); Red Blood Count 4.14 10^6/ul (4.00-5.40); Red Cell Distribution Width 13 % (10.5-15); White Blood Count 9.5 10^3/ul (3.5-10.8)
[2018-02-09 07:51] LABS: Albumin/Globulin Ratio 0.9 (1-3); Calcium 8.9 mg/dL (8.6-10.3); EGFR African American 134.1 (>60); EGFR Non-African American 110.8 (>60); Globulin 3.4 g/dL (2-4); Total Bilirubin 0.7 mg/dL (0.2-1.0); Total Protein 6.4 g/dL (6.4-8.9)
[2018-02-09 08:25] LABS: ABS Basophils 0 10^3/ul (0-0.2); ABS Eosinophils 0.2 10^3/ul (0-0.6); ABS Lymphocytes 1.5 10^3/ul (1.0-4.8); ABS Monocytes 1.5 10^3/ul (0-0.8); ABS Neutrophils 6.3 10^3/ul (1.5-7.7); ABS Nucleated RBC 0 10^3/ul; Eosinophil % 1.9 %; Lymphocyte % 15.8 %; Nucleated Red Blood Cells % 0.1
[2018-02-09] MEDS: Pantoprazole IV* 40 MG IV SCH (08:30)
[2018-02-09 08:33] VITALS: BP 124/74
--- NOTE | 2018-02-09 09:28 | PN ---
Progress Note - Progress Note Date of Service: 02/09/18 Note: Surgery Progress Note S: Patient doing well this morning. Tolerating diet but says he feels full quickly. Minimal amount of tenderness. Had fever yesterday afternoon post op. None overnight. O: Vital Signs: Temp Pulse Resp BP Pulse Ox 97.7 F 74 18 124/74 96 02/09/18 07:32 02/09/18 07:32 02/09/18 08:29 02/09/18 07:32 02/09/18 07:32 Laboratory Results - last 24 hr 02/09/18 02/09/18 07:27 07:27 WBC 9.5 RBC 4.14 Hgb 12.8 L Hct 37 L MCV 90 MCH 31 MCHC 35 RDW 13 Plt Count 276 MPV 8.8 Neut % (Auto) 66.4 Lymph % (Auto) 15.8 Keith % (Auto) 15.7 Eos % (Auto) 1.9 Baso % (Auto) 0.2 Absolute Neuts (auto) 6.3 Absolute Lymphs (auto) 1.5 Absolute Monos (auto) 1.5 H Absolute Eos (auto) 0.2 Absolute Basos (auto) 0 Absolute Nucleated RBC 0 Nucleated RBC % 0.1 Sodium 139 Potassium 4.0 Chloride 104 Carbon Dioxide 30 Anion Gap 5 BUN 7 Creatinine 0.78 Est GFR ( Amer) 134.1 Est GFR (Non-Af Amer) 110.8 BUN/Creatinine Ratio 9.0 Glucose 110 H Calcium 8.9 Total Bilirubin 0.70 AST 27 ALT 85 H Alkaline Phosphatase 147 H Total Protein 6.4 Albumin 3.0 L Globulin 3.4 Albumin/Globulin Ratio 0.9 L Intake & Output 02/08/18 02/09/18 02/09/18 22:59 06:59 14:59 Intake Total 900 0 Balance 900 0 Intake: IV Fluids 500 LR 500 Oral 400 0 Other: Estimated Void Medium # Bowel Movements 0 0 # Voids 2 0 Physical exam: abd soft, minimally tender in epigastric area, incision c/d/i with steristrips A/P: 37M post op day 1 lap sarah for gallstone pancreatitis, stayed overnight because of fever. - Patient doing well this AM, afebrile overnight, WBC normal, LFTs downtrending and T bili normal. Clinically appears well, tolerating a diet with minimal pain. Fever likely from inflammation after surgery. Can DC today. - Post op instructions placed in dicharge folder in chart. Please have patient follow up with [facility] in 7-10 days for post operative visit.
--- NOTE | 2018-02-09 21:10 | DS ---
DISCHARGE SUMMARY: DATE OF ADMISSION: DATE OF DISCHARGE: 02/09/18. HISTORY OF PRESENT ILLNESS: This 37-year-old man was admitted from [facility] with right upper quadrant pain. He was found to have gallstone pancreatitis. He had had a history of biliary colic for several months. The rest of the history is detailed in the admission note. The patient was treated with intravenous fluids. Because of his fever, he was given piperacillin and tazobactam. His pancreatitis resolved fairly rapidly. His pain and tenderness are resolving steadi ly. He still had a fever which I think at that point was most likely drug-related fever. He underwen t laparoscopic cholecystectomy on 02/08/18 without any complication and looked in good condition on t day of discharge. He had had a temperature on 02/08/18 and it is possible that he will still have a fever for a few days which I think if so would be the effects of his drug fever. FINAL DIAGNOSIS: 1. Gallstone pancreatitis, status post laparoscopic cholecystectomy. 2. History of hypertension. CONDITION ON DISCHARGE: Improved. DISPOSITION ON DISCHARGE: Discharged to [facility]. DISCHARGE MEDICATIONS: 1. Acetaminophen 650 mg every four hours p.r.n. 2. Ibuprofen 600 mg every six hours p.r.n. 3. Omeprazole 20 mg daily. [id number]/[facility] [place] #: [id number]
== END 2018-02-09 14:47 | DRG 263 ==
LOC: ED 11:43 → EEVIPCON 15:53 → MED 15:53
PROVIDERS: ADMIT Hospitalist; ATTEND Internal Medicine
PROC: 0FT44ZZ Resection of Gallbladder, Percutaneous Endoscopic Approach (ICD-10-PCS; principal; 2018-02-08 14:30)
DX: K85.10 Biliary acute pancreatitis without necrosis or infection (principal); R65.10 Systemic inflammatory response syndrome (SIRS) of non-infectious origin without acute organ dysfunction; I10 Essential (primary) hypertension; E66.3 Overweight; E80.6 Other disorders of bilirubin metabolism; K80.50 Calculus of bile duct without cholangitis or cholecystitis without obstruction; Z83.3 Family history of diabetes mellitus; Z68.32 Body mass index [BMI] 32.0-32.9, adult
CPT/HCPCS: 36415; 71045; 74177; 74181; 76376; 76705; 80048; 80053; 80076; 81003; 81015; 82140; 82150; 82550; 83605; 83690; 83735; 83880; 84100; 84484; 85025; 85610; 85730; 86140; 87086; 87641; 88304; 93005; 99284; A9270-GY; J0360; J1100; J1885; J2250; J2270; J2405; J2543; J2704; J2710; J3010; J3490; Q9967